=== PATIENT | male | born 1975 | race Caucasian/White ===

== ENCOUNTER 2018-07-15 17:16 | Emergency (ER) | payer OTHER ==
[2018-07-15 17:22] VITALS: BP 148/89
--- NOTE | 2018-07-15 18:34 | ER Document Report ---
ED General - General Chief Complaint: Finger Injury Stated Complaint: FINGER LACERATION Time Seen by Provider: 07/15/18 18:31 TRAVEL OUTSIDE OF THE [place] IN LAST 30 DAYS: No - HPI Patient complains to provider of: finger laceration Notes: Patient presents to ER A&O x 4 with laceration to right middle finger. Reports he cut the tip of finger with a pocket knife. States he went to [facility] and they told him that he cut part of the pad of the finger but could not control the bleeding so he was referred to the ER. States that tetanus is up-to-date. Patient denies any fevers chills nausea vomiting diarrhea - Related Data Allergies/Adverse Reactions: ceftriaxone [From Rocephin] Allergy (Verified 07/15/18 17:18) Past Medical History - Social History Smoking Status: Never Smoker Frequency of alcohol use: None Drug Abuse: None Family History: Reviewed & Not Pertinent Patient has suicidal ideation: No Patient has homicidal ideation: No Renal/ Medical History: Denies: Hx Peritoneal Dialysis Review of Systems - Review of Systems Constitutional: Other - Laceration finger EENT: No symptoms reported Cardiovascular: No symptoms reported Respiratory: No symptoms reported Gastrointestinal: No symptoms reported Genitourinary: No symptoms reported Male Genitourinary: No symptoms reported Musculoskeletal: No symptoms reported Skin: No symptoms reported Hematologic/Lymphatic: No symptoms reported Neurological/Psychological: No symptoms reported -: Yes All other systems reviewed and negative Physical Exam - Vital signs Vitals: Temp Pulse Resp BP Pulse Ox 97.9 F 84 16 148/89 H 100 07/15/18 17:21 07/15/18 17:21 07/15/18 17:21 07/15/18 17:21 07/15/18 17:21 Interpretation: Normal - General General appearance: Appears well, Alert - HEENT Head: Normocephalic, Atraumatic Eyes: Normal Pupils: PERRL - Respiratory Respiratory status: No respiratory distress Chest status: Nontender Breath sounds: Normal Chest palpation: Normal - Cardiovascular Rhythm: Regular Heart sounds: Normal auscultation Murmur: No - Abdominal Inspection: Normal Distension: No distension Bowel sounds: Normal Tenderness: Nontender Organomegaly: No organomegaly - Back Back: Normal, Nontender - Extremities General upper extremity: Nontender, Normal color, Normal ROM, Normal temperature. No: Normal inspection - Inspection of the right middle finger shows that the tip has been avulsed or cut off there is no bone exposure in the post tissue is exposed bleeding is controlled upon removal of the bandage General lower extremity: Normal inspection, Nontender, Normal color, Normal ROM , Normal temperature, Normal weight bearing. No: Brad's sign - Neurological Neuro grossly intact: Yes Cognition: Normal Orientation: AAOx4 [place] Coma Scale Eye Opening: Spontaneous [place] Coma Scale Verbal: Oriented [place] Coma Scale Motor: Obeys Commands [place] Coma Scale Total: 15 Speech: Normal Motor strength normal: LUE, RUE, LLE, RLE Sensory: Normal - Psychological Associated symptoms: Normal affect, Normal mood - Skin Skin Temperature: Warm Skin Moisture: Dry Skin Color: Normal Course - Re-evaluation Re-evalutation: 07/15/18 21:35 No signs of any significant injury explained to the patient for surgical repair needed at this time continue to apply antibiotic ointment to the area with scar over return to ER for any signs of infection or for possible hemostasis if he does have trouble controlling bleeding she was given trauma gauze to place and the tip patient will be discharged home - Vital Signs Vital signs: Temp Pulse Resp BP Pulse Ox 97.9 F 84 16 148/89 H 100 07/15/18 17:21 07/15/18 17:21 07/15/18 17:21 07/15/18 17:21 07/15/18 17:21 Discharge - Discharge Clinical Impression: Avulsion injury middle right finger Disposition: HOME, SELF-CARE Instructions: Antibiotic Ointment Protection ([facility]), Avulsion Injury ([facility]) Additional Instructions: Please keep the finger well dressed and clean changing the dressing at least once a day. He may place antibiotic ointment on the tip of the finger. Return to ER if symptoms worsen.
== END 2018-07-15 18:37 | disposition home or self-care (01) ==
LOC: ER 17:16
DX: S61.212A Laceration without foreign body of right middle finger without damage to nail, initial encounter (principal); W26.0XXA Contact with knife, initial encounter
CPT/HCPCS: 99283